=== PATIENT | female | born 1940 | race Caucasian/White ===

== ENCOUNTER 2018-03-01 13:19 | Outpatient (REF) | payer OTHER, SELFPAY ==
[2018-03-01 20:34] LABS: HCT 40.7 % (36.0-46.0); HGB 13.6 g/dL (12.0-15.5); Mean Corp. HGB Concentration 33.4 g/dL (32.0-36.0); Mean Corpuscular Hemoglobin 31.6 pg (27.0-33.0); Mean Corpuscular Volume 94.4 fL (80-95); Mean Platelet Volume 9.7 fL (8.0-11.0); Platelet Count 266 x1000/uL (130-400); RBC 4.31 m/cumm (4.00-5.20); RBC Distribution Width 11.9 % (11.7-14.6); White Blood Cell Count 7.67 k/cumm (4.4-10.8)
[2018-03-01 21:11] LABS: Anion Gap 8.4 mmol/L (3-11); BUN 18 mg/dL (7-18); CO2 28.6 mmol/L (21.0-32.0); CREATININE 0.63 mg/dL (0.55-1.02); Calcium 8.8 mg/dL (8.5-10.1); Chloride 96 mmol/L (98-107); Glucose 165 mg/dL (70-100); Potassium 4.4 mmol/L (3.5-5.1); Sodium 133 mmol/L (136-145); TSH (W/Ref FT4) 1.62 uIU/mL (0.358-3.74)
[2018-03-01 21:20] LABS: ESR 27 MM/HR (0-30)
== END 2018-03-01 13:39 ==
LOC: NCHCN 13:19
PROVIDERS: PCP Specialist/Technologist Athletic Trainer; Visit Provider Specialist/Technologist Athletic Trainer
DX: R53.83 Other fatigue (principal); Z02.89 Encounter for other administrative examinations
CPT/HCPCS: 80048; 85027; 85652; 84443

== ENCOUNTER 2020-12-31 15:29 | Emergency (ER) | payer OTHER, SELFPAY ==
[2020-12-31 15:39] VITALS: BP 133/84; PULSE 98; RESP 18; TEMP 36.7; O2SAT 97
--- NOTE | 2020-12-31 16:44 | ED.GENADUL_ITS ---
Discharge Plan Disposition Patient Disposition: HOME Condition: Stable Discharge Details Clinical Impression: Laceration of leg, Skin tear Primary Care Provider: Nataliia Vick ED Provider: Yessica Mistry Home Meds and New Rx's Prescriptions: Continued multivitamin [Daily Multi-Vitamin] 1 EACH tablet 1 ea PO DAILY RF: 0 metoprolol succinate 50 MG tablet extended release 24 hr 50 mg PO DAILY RF: 0 clopidogrel [Plavix] 75 MG tablet 75 mg PO DAILY RF: 0 calcium carbonate-vitamin D3 1 EACH tablet 1 ea PO BID RF: 0 aspirin [Adult Low Dose Aspirin] 81 MG tablet,delayed release (DR/EC) 81 mg PO DAILY RF: 0 insulin aspart U-100 [Novolog U-100 Insulin aspart] 100 UNITS/ML solution 0 units Sub-Q 0800,1200,1700,2000 RF: 0 montelukast [Singulair] 10 MG tablet 10 mg PO PRNRF: 0 furosemide [Lasix] 20 MG tablet 40 mg PO PRNRF: 0 coenzyme Q10 [Co Q-10] 100 MG capsule 100 mg PO BID RF: 0 rosuvastatin [Crestor] 20 MG tablet 20 mg PO QPM RF: 0 Levemir U-100 Insulin 100 UNITS/1 ML solution 32 units SQ DAILY RF: 0 Combigan 5 ML drops 5 ml Ophthalmic BID RF: 0 omega 4-ccm-vbw-fish oil 1 EACH capsule 1 ea PO BID RF: 0 Discharge Instructions Instructions: Laceration (ED), Skin Tear (ED) Additional Instructions: Please keep wound clean, dry, covered. You may use Tylenol as needed for discomfort. Please encourage elevation of the leg. Please keep current dressing on for the next day. You may shower tomorrow evening and wash the wound like you typically with soap and water. The area of skin tear will benefit from some bacitracin and then a Band-Aid to help protect this and help to bandages from sticking. Forward you may continue with your Plavix and aspirin as previously advised. Please follow-up with your primary care the beginning of next week for reevaluation of the wound. You may return in 2 weeks for suture removal. If you develop any new or worsening symptoms please seek care urgently once again. Referrals: Nataliia Vick [Primary Care Provider] - Discharge Data Discharge Date/Time-TO BE ENTERED AT DEPARTURE: 12/31/20 17:03 Medical Decision Making <POLLY Lassiter - Last Filed: 01/03/21 07:42> Patient is a pleasant 80-year-old female presenting today with chief complaint of laceration to the right lower extremity. She reports a prior to arrival she had stepped of the shower, was sitting on the toilet when she stood up and slipped, striking the right chen against the edge of the shower. Denies of the time of injury at the time of the incident. Did not fall and strike her head. No loss of consciousness. Denies pain elsewhere. States that she has chronic neuropathy but that is unchanged, no increase numbness or tingling. Has been ambulatory without discomfort since the fall. Tetanus is up-to-date. Patient is on Plavix and aspirin. On exam, patient appears anxious but otherwise nontoxic. She does have laceration and surrounding skin tear to the right lower extremity. Minimal active bleeding. No deep structure involvement. She is good range of motion of the ankle. 2+ pulses. Sensation is intact. No pain proximal to the wound. She is ambulating well without any antalgic gait or discomfort. Does not have any indication to suggest a fracture at this time. Patient I discussed risk/benefits as well as expected procedural steps assisted with closure of the deeper aspect of the wound. She voices understanding and wishes to proceed. Please see procedure note. Patient tolerated this well. Wound was copiously irrigated explored to base in a bloodless field no foreign body or debris noted. Francis and I discussed wound care in depth. Return precautions discussed, in particular signs of infection. She will f/u with PCP in one week for wound evaluation. Will return in 2 weeks for suture removal. All of her questions and concerns were addressed, she is in agreement with this plan. <Angelito Dawson MD - Last Filed: 01/04/21 16:50> Patient seen, examined, and discussed with POLLY Mistry. I agree with treatment plan as discussed/documented. HPI <POLLY Lassiter - Last Filed: 01/03/21 07:42> General Mode of arrival: ambulatory . Date/Time Provider Initiated Documentation: 12/31/20 16:44 . Limitations to Documentation: no limitations . Information obtained by: patient and RN notes reviewed . History of Present Illness 80 year old F presents to the emergency department with the chief complaint of laceration RLE, described as mild, with intensity rated at 2. Quality is described as aching, and is localized to the right and lower extremity. Patient reports no radiation. Patient started experiencing this minute(s) and it has been constant. No relieving factors improve symptom(s), No exacerbating factors reported . Patient notes no other symptoms.. Patient did receive the following treatments prior to arrival, none Related Data Home Medications Medication Instructions Recorded Confirmed Combigan 5 ml OPHTHALMIC BID 02/08/13 02/08/13 Levemir U-100 Insulin 32 units SQ DAILY 02/08/13 02/08/13 aspirin [Adult Low Dose Aspirin] 81 mg PO DAILY 02/08/13 02/08/13 calcium carbonate-vitamin D3 1 ea PO BID 02/08/13 02/08/13 clopidogrel [Plavix] 75 mg PO DAILY 02/08/13 02/08/13 coenzyme Q10 [Co Q-10] 100 mg PO BID 02/08/13 02/08/13 furosemide [Lasix] 40 mg PO PRN 02/08/13 02/08/13 insulin aspart U-100 [Novolog 0 units SUB-Q 0800,1200,1700,2000 02/08/13 02/08/13 U-100 Insulin aspart] metoprolol succinate 50 mg PO DAILY 02/08/13 12/31/20 montelukast [Singulair] 10 mg PO PRN 02/08/13 02/08/13 multivitamin [Daily Multi-Vitamin] 1 ea PO DAILY 02/08/13 12/31/20 omega 2-fxg-npl-fish oil 1 ea PO BID 02/08/13 12/31/20 rosuvastatin [Crestor] 20 mg PO QPM 02/08/13 12/31/20 Allergies Allergy/AdvReac Type Severity Reaction Status Date / Time sertraline HCl [From Zoloft] Allergy Intermediate colitis Unverified 12/31/20 15:48 fruits Allergy Intermediate mouth Uncoded 12/31/20 15:48 itchy,throat closing hay fever Allergy Mild head Uncoded 12/31/20 15:48 congestion,runny eyes and nose General Stated Complaint: Laceration KAILEY: 3 Review of Systems <POLLY Lassiter - Last Filed: 01/03/21 07:42> Constitutional Constitutional: Reports as per HPI, Denies chills and Denies fever(s) Musculoskeletal Musculoskeletal: Reports as per HPI Integumentary/Breasts Skin/Breast: Reports as per HPI Neurologic Neurologic: Reports as per HPI, Denies sensory deficit and Denies paresthesias PFS <POLLY Lassiter - Last Filed: 01/03/21 07:42> Social History Smoking/Tobacco Use Status: Former Tobacco Use Smoking risk assessment performed?: Yes Drug use: Never Do you feel safe at home: Yes Do you feel safe in your relationship?: Yes Exam <POLLY Lassiter - Last Filed: 01/03/21 07:42> Const General: cooperative, healthy appearing, comfortable, no acute distress and well developed Nutritional Appearance: average body habitus and well nourished Orientation: alert and awake Resp Effort & Inspection: normal respiratory effort, able to speak in complete sentences and no respiratory distress Cardio Rate: regular rate Rhythm: regular rhythm Skin Trauma: laceration (and skin tear) Neuro General: patient alert and patient awake Cognition: normal cognition Speech: speech normal Gait: normal gait Sensory Exam: no sensory deficits noted Psych Appearance: grossly normal and well kempt Mental Status: mental status grossly normal Speech and Movement: speech and movement normal Course <POLLY Lassiter - Last Filed: 01/03/21 07:42> Vital Signs Vital signs: Vital Signs Temperature 36.7 C 12/31/20 15:39 Pulse 98 H 12/31/20 15:39 Respiratory Rate 18 12/31/20 15:39 Blood Pressure 133/84 12/31/20 15:39 Pulse Oximetry 97 12/31/20 15:39 Temperature 36.7 C 12/31/20 15:39 Temperature Source Skin 12/31/20 15:39 Pulse 98 H 12/31/20 15:39 Respiratory Rate 18 12/31/20 15:39 Respiratory Effort 12/31/20 15:48 Blood Pressure 133/84 12/31/20 15:39 Blood Pressure Position Sitting 12/31/20 15:39 Pulse Oximetry 97 12/31/20 15:39 Oxygen Delivery Method Room Air 12/31/20 15:39 Oxygen Flow Rate 0 12/31/20 15:39 Pain Level 2 12/31/20 15:39 Procedures <POLLY Lassiter - Last Filed: 01/03/21 07:42> Laceration Laceration 1: Site: lower extremity Side (If applicable): right Size (cm): 7 Description: irregular Depth: simple, single layer Local Anesthetic: Lidocaine 1% and with Epi Amount of anesthesia used (mL): 8 Pre-repair: wound explored, irrigated extensively and deep structures intact Skin layer closed with: nylon Size (cm): 5-0 Number of sutures: 5 Technique: horizontal mattress
== END 2020-12-31 17:03 | disposition home or self-care (01) ==
PROVIDERS: Emergency Provider Physician Assistant; PCP Nurse Practitioner Family
DX: S81.811A Laceration without foreign body, right lower leg, initial encounter (principal); W01.198A Fall on same level from slipping, tripping and stumbling with subsequent striking against other object, initial encounter
CPT/HCPCS: 12002

== ENCOUNTER 2021-02-09 18:11 | Emergency (ER) | payer OTHER, SELFPAY ==
[2021-02-09 18:18] VITALS: BP 134/70; PULSE 84; RESP 18; TEMP 37.6; O2SAT 99
--- NOTE | 2021-02-09 18:40 | ED.GENADUL_ITS ---
Discharge Plan Disposition Patient Disposition: HOME Discharge Details Clinical Impression: Skin tear of right hand without complication, Fall Primary Care Provider: Nataliia Vick ED Provider: Yessica Mistry Home Meds and New Rx's Prescriptions: No Action multivitamin [Daily Multi-Vitamin] 1 EACH tablet 1 ea PO DAILY RF: 0 clopidogrel [Plavix] 75 MG tablet 75 mg PO DAILY RF: 0 calcium carbonate-vitamin D3 1 EACH tablet 1 ea PO BID RF: 0 aspirin [Adult Low Dose Aspirin] 81 MG tablet,delayed release (DR/EC) 81 mg PO DAILY RF: 0 insulin aspart U-100 [Novolog U-100 Insulin aspart] 100 UNITS/ML solution 0 units Sub-Q 0800,1200,1700,2000 RF: 0 montelukast [Singulair] 10 MG tablet 10 mg PO DAILY AM RF: 0 furosemide [Lasix] 20 MG tablet 40 mg PO PRN PRNRF: 0 coenzyme Q10 [Co Q-10] 100 MG capsule 100 mg PO BID RF: 0 rosuvastatin [Crestor] 20 MG tablet 20 mg PO QPM RF: 0 Levemir U-100 Insulin 100 UNITS/1 ML solution 32 units SQ DAILY RF: 0 Combigan 5 ML drops 5 ml Ophthalmic BID RF: 0 omega 2-kzp-ykd-fish oil 1 EACH capsule 1 ea PO BID RF: 0 gabapentin 400 mg Capsule 400 mg PO QID RF: 0 irbesartan 300 mg Tablet 300 mg PO DAILY RF: 0 Kapspargo Sprinkle 25 mg Capsule,Sprinkle,Er 24hr 25 mg PO HS RF: 0 albuterol sulfate [Ventolin HFA] 90 mcg/actuation Hfa Aerosol Inhaler 2 puff INHALATION Q4H PRN PRNRF: 0 Incruse Ellipta 62.5 mcg/actuation Blister With Device 2 inh INHALATION DAILY RF: 0 azelastine-fluticasone 137-50 mcg/spray [place],Non-Aerosol INTRANASAL RF: 0 Discharge Instructions Instructions: Fall Prevention for Older Adults (ED), Skin Tear (ED) Additional Instructions: Please contact your primary care physician to arrange follow-up. Return to the ER for any worsening or new concerning symptoms. Referrals: Nataliia Vick [Primary Care Provider] - Discharge Data Discharge Date/Time-TO BE ENTERED AT DEPARTURE: 02/09/21 19:18 Medical Decision Making <Angelito Dawson MD - Last Filed: 02/24/21 11:28> Patient seen, examined, and discussed with POLLY Mistry. I agree with treatment plan as discussed/documented. <POLLY Lassiter - Last Filed: 02/12/21 11:24> Patient is a pleasant 80-year-old [id number] female presenting today with chief complaint of skin tear to the posterior aspect of the right hand. She reports a prior to arrival she tripped when going through a rotating door. Suffered injuries to the right hand. Denies other injury the time of the incident. Tetanus is up-to-date. She denies any numbness or tingling. On exam, patient has a superficial skin tear to the dorsal aspect of the right hand. Am concerned that the viability of the torn aspect as it is darkened. We did discuss that this will likely come off with time. However, the tissue underneath appears healthy. I am not seeing any foreign body or debris. We discussed treatment options. I believe biologic dressing with the skin flap is safest option. Using standard sterile technique, the wound is copiously irrigated with sterile saline. Explored to base in a bloodless field no foreign body or debris noted. Skin tear was gently reapproximated and held in place with Steri-Strips. Sterile dressing applied over this. Patient, and I discussed likely course associated with her skin tear. We discussed wound care in depth. Return precautions were discussed. Encourage follow-up with primary care in the next week for reevaluation of her wound. All the questions and concerns were addressed and she is in agreement with this plan. HPI <Angelito Dawson MD - Last Filed: 02/24/21 11:28> General Date/Time Provider Initiated Documentation: 02/09/21 18:19 . Related Data Home Medications Medication Instructions Recorded Confirmed Combigan 5 ml OPHTHALMIC BID 02/08/13 02/08/13 Levemir U-100 Insulin 32 units SQ DAILY 02/08/13 02/09/21 aspirin [Adult Low Dose Aspirin] 81 mg PO DAILY 02/08/13 02/09/21 calcium carbonate-vitamin D3 1 ea PO BID 02/08/13 02/08/13 clopidogrel [Plavix] 75 mg PO DAILY 02/08/13 02/09/21 coenzyme Q10 [Co Q-10] 100 mg PO BID 02/08/13 02/08/13 furosemide [Lasix] 40 mg PO PRN PRN 02/08/13 02/09/21 insulin aspart U-100 [Novolog 0 units SUB-Q 0800,1200,1700,2000 02/08/13 U-100 Insulin aspart] montelukast [Singulair] 10 mg PO DAILY AM 02/08/13 02/09/21 multivitamin [Daily Multi-Vitamin] 1 ea PO DAILY 02/08/13 12/31/20 omega 3-dmz-znm-fish oil 1 ea PO BID 02/08/13 12/31/20 rosuvastatin [Crestor] 20 mg PO QPM 02/08/13 02/09/21 albuterol sulfate [Ventolin HFA] 2 puff INHALATION Q4H PRN PRN 02/09/21 02/09/21 azelastine-fluticasone INTRANASAL 02/09/21 gabapentin 400 mg PO QID 02/09/21 02/09/21 irbesartan 300 mg PO DAILY 02/09/21 02/09/21 metoprolol succinate [[place]apspargo 25 mg PO HS 02/09/21 02/09/21 Sprinkle] umeclidinium [Incruse Ellipta] 2 inh INHALATION DAILY 02/09/21 02/09/21 Allergies Allergy/AdvReac Type Severity Reaction Status Date / Time sertraline HCl [From Zoloft] Allergy Intermediate colitis Unverified 02/09/21 18:23 fruits Allergy Intermediate mouth Uncoded 02/09/21 18:23 itchy,throat closing hay fever Allergy Mild head Uncoded 02/09/21 18:23 congestion,runny eyes and nose <POLLY Lassiter - Last Filed: 02/12/21 11:24> General Mode of arrival: ambulatory . Limitations to Documentation: no limitations . Information obtained by: patient, family () and RN notes reviewed . History of Present Illness 80 year old F presents to the emergency department with the chief complaint of right hand skin flap, described as mild, with intensity rated at 2. Quality is described as aching, and is localized to the right and upper extremity. Patient reports no radiation. Patient started experiencing this minute(s) and it has been constant. No relieving factors improve symptom(s), No exacerbating factors reported . Patient notes no other symptoms.. Patient did receive the following treatments prior to arrival, other (cleaned, dressing applied) General Stated Complaint: Laceration KAILEY: 3 <POLLY Lassiter - Last Filed: 02/12/21 11:24> Constitutional Constitutional: Reports as per HPI, Denies chills and Denies fever(s) Musculoskeletal Musculoskeletal: Reports as per HPI Integumentary/Breasts Skin/Breast: Reports as per HPI Neurologic Neurologic: Reports as per HPI, Denies sensory deficit and Denies paresthesias PFSH <Angelito Dawson MD - Last Filed: 02/24/21 11:28> Social History Smoking/Tobacco Use Status: Former Tobacco Use Smoking risk assessment performed?: Yes Drug use: Never Do you feel safe at home: Yes Do you feel safe in your relationship?: Yes <POLLY Lassiter - Last Filed: 02/12/21 11:24> Const General: cooperative, healthy appearing, comfortable, no acute distress and well developed Nutritional Appearance: average body habitus and well nourished Orientation: alert and awake Resp Effort & Inspection: normal respiratory effort, able to speak in complete sentences and no respiratory distress Cardio Rate: regular rate Rhythm: regular rhythm Skin Trauma: laceration (flap laceration right posterior hand) Neuro General: patient alert and patient awake Cognition: normal cognition Speech: speech normal Gait: normal gait Sensory Exam: no sensory deficits noted Psych Appearance: grossly normal and well kempt Mental Status: mental status grossly normal Speech and Movement: speech and movement normal <POLLY Lassiter - Last Filed: 02/12/21 11:24> Vital Signs Vital signs: Vital Signs Temperature 37.6 C H 02/09/21 18:18 Pulse 84 02/09/21 18:18 Respiratory Rate 18 02/09/21 18:18 Blood Pressure 134/70 02/09/21 18:18 Pulse Oximetry 99 02/09/21 18:18 Temperature 37.6 C H 02/09/21 18:18 Temperature Source Temporal Artery Scan 02/09/21 18:18 Pulse 84 02/09/21 18:18 Respiratory Rate 18 02/09/21 18:18 Respiratory Effort 02/09/21 18:37 Blood Pressure 134/70 02/09/21 18:18 Blood Pressure Position Supine 02/09/21 18:18 Pulse Oximetry 99 02/09/21 18:18 Oxygen Delivery Method Tent 02/09/21 18:18 Oxygen Flow Rate 0 02/09/21 18:18 Pain Level 2 02/09/21 18:18
== END 2021-02-09 19:18 | disposition home or self-care (01) ==
PROVIDERS: Emergency Provider Physician Assistant; PCP Nurse Practitioner Family
DX: S61.411A Laceration without foreign body of right hand, initial encounter (principal); W18.39XA Other fall on same level, initial encounter
CPT/HCPCS: 99282; 99283

== ENCOUNTER 2022-01-11 10:28 | Outpatient (REF) | payer OTHER, SELFPAY ==
[2022-01-11 16:35] LABS: Magnesium 1.8 mg/dL (1.8-2.4)
== END 2022-01-11 10:29 | disposition home or self-care (01) ==
LOC: NCHCN 10:28
PROVIDERS: PCP Nurse Practitioner Family; Visit Provider Nurse Practitioner Family
DX: M81.0 Age-related osteoporosis without current pathological fracture (principal)
CPT/HCPCS: 82310; 83735; 84100